=== PATIENT | female | born 1955 | race Caucasian/White ===

== ENCOUNTER 2021-12-12 14:12 | Outpatient (CLI) | payer OTHER, SELFPAY ==
--- NOTE | ~2021-12-12 | XR_ITS ---
XR lumbar spine min 4V DATE: 12/12/2021 14:44 INDICATION: Lumbago, right sciatica TECHNIQUE: AP, lateral, bilateral oblique views, coned lateral lumbosacral view COMPARISON: None FINDINGS: There is diffuse osteopenia. There is mild dextroscoliosis of the lower thoracic and lumbar spine. No fracture or bone destruction is evident. The included lower thoracic and lumbar pedicles appear in tact. There is prominent degenerative change at the apophyseal joints at L4-5 and L5-S1 in particular. There is moderately severe degenerative disease at L1 to and mild degenerative disease at the remaind er of the lumbar spine. The sacroiliac joints are intact. Prominent amount of fecal material in the right colon. Abdominal aortic calcification. IMPRESSION: Mild dextro scoliosis Osteopenia Moderately severe degenerative disc disease at L5-S1 Prominent degenerative change at the apophyseal joints at L4-5 and L5-S1 Reviewed, dictated and finalized at location [facility].
--- NOTE | ~2021-12-12 | XR_ITS ---
EXAMINATION: XR chest 2V DATE: 12/18/2021 12:09 INDICATION: Malignant pleural effusion. TECHNIQUE: Frontal and lateral views of the chest were obtained. COMPARISON: Chest CT 05/29/2021 FINDINGS: There are scattered airspace opacities in all left lung zones. There is a small left pleura l effusion. No pneumothorax. There is a left-sided chest tube in expected position. There are surgica l clips in left axilla. There are changes of left mastectomy. There is a right internal jugular port with tip in superior vena cava. IMPRESSION: 1. Small left pleural effusion with chest tube in expected position. 2. Airspace opacities in all left lung zones, likely a combination of metastatic disease and radiatio n fibrosis. Reviewed, dictated and finalized at location A. IMPRESSION: 1. Small left pleural effusion with chest tube in expected position. 2. Airspace opacities in all left lung zones, likely a combination of metastati c disease and radiation fibrosis.
== END 2021-12-12 14:13 | disposition home or self-care (01) ==
PROVIDERS: PCP Family Medicine; Visit Provider Internal Medicine Critical Care Medicine
DX: J91.0 Malignant pleural effusion (principal); M54.41 Lumbago with sciatica, right side; M85.88 Other specified disorders of bone density and structure, other site; M51.37 Other intervertebral disc degeneration, lumbosacral region
CPT/HCPCS: 71046; 72110

== ENCOUNTER 2021-12-16 12:03 | Outpatient (CLI) | payer OTHER, SELFPAY ==
--- NOTE | ~2021-12-16 | CT_ITS ---
CT femur RT wo con DATE: 12/16/2021 12:25 INDICATION: Secondary malignant neoplasm of bone, right femoral lesser trochanter-positive lesion on PET imaging. History of breast cancer. TECHNIQUE: Axial images were obtained throughout the length of the right femur, with sagittal and cor onal reconstructions. COMPARISON: None FINDINGS: There is a permeative lytic lesion at the lesser trochanter of the right femur, the margins not well defined, with cortical penetration/destruction medially. The lesion measures at least 4.5 cm vertical dimension, up to 1.7 cm transverse dimension. Given the history of breast cancer, this is most likely a metastatic lesion. Much less likely would b e a myeloma. 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 Reviewed, dictated and finalized at location B. 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
== END 2021-12-16 12:04 | disposition home or self-care (01) ==
PROVIDERS: PCP Family Medicine; Visit Provider Radiology Radiation Oncology
DX: C79.51 Secondary malignant neoplasm of bone (principal); M89.9 Disorder of bone, unspecified
CPT/HCPCS: 73700; 99212; G0463